=== PATIENT | male | born 2000 ===

== ENCOUNTER 2019-05-03 19:41 | Emergency (ER) | payer SELFPAY ==
[2019-05-03 20:11] VITALS: BP 140/87
--- NOTE | 2019-05-03 20:15 | UC ---
Abdominal Pain Male HPI - HPI Summary HPI Summary: 18 yo male presents with abdominal pain. He tells me that over the last 2 days he has been having epigastric and LLQ abdominal pain. He states his pain was intermittent, but today has become constant and is increased. He feels that if he had a bowel movement that his pain would feel better, therefore has been straining to have a BM -- this has not helped his discomfort. He states that he feels nauseous, but eating settles this down. He saw [facility] yesterday and states that "mouth swabs" were done, but results would not be back until tomorrow. He mentions that he has had cold symptoms over the last week, but is feeling better in that regard. Has been taking dayquill/nyquill with good relief. He also complains of a headache for 2 days. He states he is in the middle of preparing for finals and this has caused increased stress. Denies fever, chills, SOB, chest pain, vomiting, diarrhea, back pain. - History of Current Complaint Chief Complaint: UCAbdominalPain Stated Complaint: ABDOMINAL PAIN Time Seen by Provider: 05/03/19 20:14 Hx Obtained From: Patient Onset/Duration: Sudden Onset Severity Initially: Mild Severity Currently: Moderate Pain Intensity: 7 Pain Scale Used: 0-10 Numeric - Allergies/Home Medications Allergies/Adverse Reactions: Allergies Allergy/AdvReac Type Severity Reaction Status Date / Time No Known Allergies Allergy Verified 05/03/19 21:04 Home Medications: Home Medications NK [No Home Medications Reported] 05/03/19 [History Confirmed 05/03/19] PMH/Surg Hx/FS Hx/Imm Hx - Additional Past Medical History Additional PMH: None - Surgical History Surgical History: None - Family History Known Family History: Positive: None - Social History Occupation: Student Lives: Dormitory/Roommates Alcohol Use: None Substance Use Type: None Smoking Status (MU): Never Smoked Tobacco Review of Systems All Other Systems Reviewed And Are Negative: No Constitutional: Positive: Negative Skin: Positive: Negative Eyes: Positive: Negative ENT: Positive: Negative Respiratory: Positive: Negative Cardiovascular: Positive: Negative Gastrointestinal: Positive: Abdominal Pain, Nausea Genitourinary: Positive: Negative Motor: Positive: Negative Neurovascular: Positive: Negative Musculoskeletal: Positive: Negative Neurological: Positive: Headache Psychological: Positive: Negative Physical Exam - Summary Physical Exam Summary: GENERAL: WDWN. Mildly uncomfortable appearing. SKIN: No rashes, sores, lesions, or open wounds. NECK: Supple. Nontender. No lymphadenopathy. CHEST: CTAB. No r/r/w. No accessory muscle use. Breathing comfortably and in no distress. CV: RRR. Pulses intact. Cap refill <2seconds ABDOMEN: Moderate TTP LLQ and epigastric area. Soft. No distention or guarding. No organomegaly. No CVA tenderness. Bowel sounds present. No mcburney point tenderness. NEURO: Alert. PSYCH: Age appropriate behavior. Triage Information Reviewed: Yes Vital Signs: Initial Vital Signs Temp 99.0 F 05/03/19 20:03 Pulse 57 05/03/19 20:03 Resp 18 05/03/19 20:03 BP 140/87 05/03/19 20:03 Pulse Ox 100 05/03/19 20:03 Laboratory Tests 05/03/19 20:18 POC Urine Color Yellow POC Urine Clarity Clear POC Urine pH 7.0 POC Ur Specif [place] 1.015 POC Urine Protein Negative POC Ur Glucose (UA) Negative POC Urine Ketones Negative POC Urine Blood Negative POC Urine Nitrite Negative POC Urine Bilirubin Negative POC Urine Urobilinogen 0.2 POC U Leukocyte Esteras Negative Vital Signs Reviewed: Yes Abd Pain Male Course/Dx - Course Course Of Treatment: He appears mildly uncomfortable - holding his abdomen from time to time. I am unsure the cause of his abdominal pain, but given his worsening symptoms and degree of discomfort - I recommended that he go to the ER for further evaluation. He was agreeable to this and will go tonight. - Differential Dx/Clinical Impression Differential Diagnosis/HQI/PQRI: Appendicitis, Bowel Obstruction, Constipation, Diverticulitis, Hepatitis, Pancreatitis, Peptic Ulcer Disease Provider Diagnosis: Epigastric pain, LLQ pain Discharge ED - Sign-Out/Discharge Documenting (check all that apply): Patient Departure All imaging exams completed and their final reports reviewed: No Studies - Discharge Plan Condition: Stable Disposition: HOME-RECOMMEND TO ED Referrals: No Primary Care Phys,NOPCP [Primary Care Provider] - Additional Instructions: Please go to the ER for further evaluation of your abdominal pain - Billing Disposition and Condition Condition: STABLE Disposition: Home-Recommend to ED - Attestation Statements Provider Attestation: Per institutional requirements, I have reviewed the chart, however, I was not consulted specifically or made aware of this patient by the midlevel provider. I did not personally evaluate, interact with , or disposition this patient.
== END 2019-05-03 20:40 | disposition home health service (06) ==
LOC: UCEAST 19:41
DX: R10.32 Left lower quadrant pain (principal); R10.13 Epigastric pain; R11.0 Nausea
CPT/HCPCS: 81003; 99202; G0463

== ENCOUNTER 2019-05-03 20:55 | Emergency (ER) | payer OTHER ==
[2019-05-03 23:13] LABS: ABS Basophils 0.1 10^3/ul (0-0.2); ABS Eosinophils 0.2 10^3/ul (0-0.6); ABS Lymphocytes 2.6 10^3/ul (1.0-4.8); ABS Monocytes 0.7 10^3/ul (0-0.8); Eosinophil % 2.1 %; Hematocrit 46 % (42-52); Hemoglobin 15.7 g/dL (14.0-18.0); Lymphocyte % 35.2 %; Mean Corpuscular HGB Conc 35 g/dL (31-36); Mean Corpuscular Hemoglobin 29 pg (27-31); Mean Corpuscular Volume 85 fL (80-94); Mean Platelet Volume 7.2 fL (7.4-10.4); Nucleated Red Blood Cells % 0.2; Platelet Count 377 10^3/uL (150-450); Red Blood Count 5.34 10^6 /uL (4.18-5.48); Red Cell Distribution Width 14 % (10-15); White Blood Count 7.5 10^3/uL (3.5-10.8)
[2019-05-03 23:25] LABS: ALT 22 U/L (7-52); AST 23 U/L (13-39); Albumin 4.6 g/dL (3.2-5.2); Albumin/Globulin Ratio 1.6 (1-3); Alkaline Phosphatase 81 U/L (34-104); Anion Gap 6 mmol/L (2-11); BUN/Creatinine Ratio 8.9 (8-20); Blood Urea Nitrogen 9 mg/dL (6-24); C Reactive Protein < 1.00 mg/L (<8.01); CO2 Carbon Dioxide 29 mmol/L (22-32); Calcium 9.8 mg/dL (8.6-10.3); Chloride 102 mmol/L (101-111); EGFR Non-African American 94.2 (>60); Globulin 2.9 g/dL (2-4); Glucose 96 mg/dL (70-100); Potassium 3.9 mmol/L (3.5-5.0); Sodium 137 mmol/L (135-145); Total Protein 7.5 g/dL (6.4-8.9)
--- NOTE | 2019-05-04 01:59 | ED ---
Abdominal Pain/Male - HPI Summary HPI Summary: Patient is a 18 y/o M presenting to the ED for a chief complaint of LLQ and umbilical abdominal pain that began 2 days ago. Patient is present with a friend. He reports nasal congestion 2 weeks ago that resolved after taking Selene. He later describes having a sore throat, cough, and chest pain for which he took DayQuil. He reports abdominal pain and chest pain with coughing. His cough has since resolved. He now describes his abdominal pain as occurring without a cough. The abdominal pain improves 15 minutes after eating before returning. The abdominal pain worsens after drinking coffee. He rates the abdominal pain as 6/10 in severity. Patient had one episode of vomiting 2 weeks ago and notes dizziness. He notes no change in his abdominal pain after having a bowel movement. Patient denies changes in appetite or diet or changes in urination. Any significant PMHx is denied. He is a cross country athlete. - History of Current Complaint Chief Complaint: EDAbdPain Stated Complaint: ABD PAIN PER PT Time Seen by Provider: 05/04/19 01:45 Hx Obtained From: Patient Onset/Duration: Sudden Onset, Still Present Timing: Intermittent Severity Initially: Moderate Severity Currently: Moderate Pain Intensity: 6 Pain Scale Used: 0-10 Numeric Location: Discrete At: LLQ, Umbilical Radiates: No Aggravating Factor(s): Nothing Alleviating Factor(s): Nothing Associated Signs And Symptoms: Positive: Cough - Resolved, Chest Pain, Dizzy, Vomiting - Allergies/Home Medications Allergies/Adverse Reactions: Allergies Allergy/AdvReac Type Severity Reaction Status Date / Time No Known Allergies Allergy Verified 05/03/19 21:04 PMH/Surg Hx/FS Hx/Imm Hx Previously Healthy: Yes Endocrine/Hematology History: Denies: Hx Diabetes Cardiovascular History: Denies: Hx Hypercholesterolemia, Hx Hypertension Sensory History: Denies: Hx Legally Blind, Hx Deafness Opthamlomology History: Denies: Hx Legally Blind EENT History: Denies: Hx Deafness - Surgical History Surgical History: None Surgery Procedure, Year, and Place: None Infectious Disease History: No Infectious Disease History: Denies: Traveled Outside the [place] in Last 30 Days - Family History Known Family History: Negative: Diabetes, Renal Disease - Social History Occupation: Student Lives: Alone Alcohol Use: None Hx Substance Use: No Substance Use Type: Reports: None Hx Tobacco Use: No Smoking Status (MU): Never Smoked Tobacco Review of Systems Positive: Other - Negative changes in appetite Positive: Sore Throat, Other - Positive nasal congestion, resolved Positive: Chest Pain Positive: Cough - Resolved Positive: Abdominal Pain - LLQ and umbilical, Vomiting Positive: other - Negative changes in urination Neurological: Other - Positive dizziness All Other Systems Reviewed And Are Negative: Yes Physical Exam - Summary Physical Exam Summary: Appearance: Well-appearing, Well-nourished, lying in bed comfortably Skin: Warm, dry, no obvious rash Eyes: sclera anicteric, no conjunctival pallor ENT: mucous membranes moist, pharynx appears normal Neck: Supple, nontender Respiratory: Clear to auscultation, no signs of respiratory distress Cardiovascular: Normal S1, S2. No murmurs. Normal distal pulses in tibial and radial bilaterally. Abdomen: Soft, nontender, normal active bowel sounds present Musculoskeletal: Normal, Strength/ROM Intact Neurological: A&Ox3, awake and alert, mentation is normal, speech is fluent and appropriate Psychiatric: affect is normal, does not appear anxious or depressed Triage Information Reviewed: Yes Vital Signs On Initial Exam: Initial Vitals Temp Pulse Resp BP Pulse Ox 98.2 F 58 16 148/102 98 05/03/19 21:01 05/03/19 21:01 05/03/19 21:01 05/03/19 21:01 05/03/19 21:01 Vital Signs Reviewed: Yes Procedures - Sedation Patient Received Moderate/Deep Sedation with Procedure: No Diagnostics - Vital Signs Vital Signs Temp Pulse Resp BP Pulse Ox 05/03/19 23:04 98.0 F 60 18 126/76 100 05/03/19 21:01 98.2 F 58 16 148/102 98 - Laboratory Lab Results: Lab Results 05/03/19 05/03/19 Range/Units 23:02 23:02 WBC 7.5 (3.5-10.8) 10^3/uL RBC 5.34 (4.18-5.48) 10^6 /uL Hgb 15.7 (14.0-18.0) g/dL Hct 46 (42-52) % MCV 85 (80-94) fL MCH 29 (27-31) pg MCHC 35 (31-36) g/dL RDW 14 (10-15) % Plt Count 377 (150-450) 10^3/uL MPV 7.2 L (7.4-10.4) fL Neut % (Auto) 52.7 % Lymph % (Auto) 35.2 % [place] % (Auto) 9.2 % Eos % (Auto) 2.1 % Baso % (Auto) 0.8 % Absolute Neuts (auto) 4.0 (1.5-7.7) 10^3/ul Absolute Lymphs (auto) 2.6 (1.0-4.8) 10^3/ul Absolute Monos (auto) 0.7 (0-0.8) 10^3/ul Absolute Eos (auto) 0.2 (0-0.6) 10^3/ul Absolute Basos (auto) 0.1 (0-0.2) 10^3/ul Absolute Nucleated RBC 0.0 10^3/ul Nucleated RBC % 0.2 Sodium 137 (135-145) mmol/L Potassium 3.9 (3.5-5.0) mmol/L Chloride 102 (101-111) mmol/L Carbon Dioxide 29 (22-32) mmol/L Anion Gap 6 (2-11) mmol/L BUN 9 (6-24) mg/dL Creatinine 1.01 (0.67-1.17) mg/dL Est GFR ( Amer) 114.0 (>60) Est GFR (Non-Af Amer) 94.2 (>60) BUN/Creatinine Ratio 8.9 (8-20) Glucose 96 (70-100) mg/dL Calcium 9.8 (8.6-10.3) mg/dL Total Bilirubin 0.50 (0.2-1.0) mg/dL AST 23 (13-39) U/L ALT 22 (7-52) U/L Alkaline Phosphatase 81 (34-104) U/L C-Reactive Protein < 1.00 (<8.01) mg/L Total Protein 7.5 (6.4-8.9) g/dL Albumin 4.6 (3.2-5.2) g/dL Globulin 2.9 (2-4) g/dL Albumin/Globulin Ratio 1.6 (1-3) Lipase 10 L (11.0-82.0) U/L Result Diagrams: 05/03/19 23:02 05/03/19 23:02 Lab Statement: Any lab studies that have been ordered have been reviewed, and results considered in the medical decision making process. - Radiology Chest X-ray Radiology Interpretation Completed By: ED Physician Summary of Radiographic Findings: Chest X-ray IMPRESSION: no acute process. Reviewed and interpreted by Dr. Tyson, pending official radiology report. Abdominal Pain Male Course/Dx - Course Course Of Treatment: Patient is a 18 y/o M presenting to the ED for a chief complaint of LLQ and umbilical abdominal pain that began 2 days ago. Patient is present with a friend. He reports nasal congestion 2 weeks ago that resolved after taking Selene. He later describes having a sore throat, cough, and chest pain for which he took DayQuil. He reports abdominal pain and chest pain with coughing. His cough has since resolved. He now describes his abdominal pain as occurring without a cough. The abdominal pain improves 15 minutes after eating before returning. The abdominal pain worsens after drinking coffee. He rates the abdominal pain as 6/10 in severity. Patient had one episode of vomiting 2 weeks ago and notes dizziness. He notes no change in his abdominal pain after having a bowel movement. Patient denies changes in appetite or diet or changes in urination. Any significant PMHx is denied. On exam, unremarkable findings. In the ED course, patient was given Maalox 30 ml PO, lidocaine 15 ml PO, and naproxen 375 mg PO. Laboratory abnormal findings: MPV 7.2, lipase 10. Chest X- ray IMPRESSION: no acute process. Patient will be discharged with a diagnosis of abdominal pain. Follow up with PCP in 2-3 days. - Diagnoses Provider Diagnoses: Abdominal pain Discharge ED - Sign-Out/Discharge Documenting (check all that apply): Patient Departure - Discharge - Discharge Plan Condition: Good Disposition: HOME Prescriptions: Naproxen TAB* [Naprosyn 375 mg TAB*] 375 mg PO BID #20 tab Patient Education Materials: Acute Abdominal Pain (ED) Forms: *School Release Referrals: [facility] @ [Outside] - 2 Days (if not starting to improve) - Billing Disposition and Condition Condition: GOOD Disposition: Home - Attestation Statements Document Initiated by Scribe: Yes Documenting Scribe: Marilynn Dewey Provider For Whom Scribe is Documenting (Include Credential): Yo Tyson MD Scribe Attestation: Marilynn Merlos, scribed for Yo Tyson MD on 05/04/19 at 0647. Scribe Documentation Reviewed: Yes Provider Attestation: The documentation as recorded by the Marilynn stokes accurately reflects the service I personally performed and the decisions made by me, Yo Tsyon MD Status of Scribcory Document: Viewed
[2019-05-04] MEDS ORDERED: Lidocaine 2% VISCOUS* 15 ML UDC PO ONE (02:20)
[2019-05-04] MEDS ORDERED: Al Hydrox/Mg Hydrox/Simet LIQ* 30 ML UDC PO ONE (02:20)
[2019-05-04] MEDS ORDERED: Naproxen TAB* 375 MG PO ONE (04:25)
[2019-05-04 04:43] VITALS: BP 139/80
== END 2019-05-04 04:40 | disposition home or self-care (01) ==
LOC: ED 20:55
DX: R10.32 Left lower quadrant pain (principal); R05 Cough; J02.9 Acute pharyngitis, unspecified; R09.81 Nasal congestion; R42 Dizziness and giddiness
CPT/HCPCS: 36415; 71046; 80053; 83690; 85025; 86140; 99283; A9270-GY